=== PATIENT | male | born 1960 | race Two or more races ===

== ENCOUNTER 2018-07-02 13:09 | Inpatient (IN) | payer MEDICAID, OTHER ==
[~2018-07-02] VITALS: Ht 172.7 cm; Wt 81.3 kg
[2018-07-02] MEDS ORDERED: BENA5TAB6 PO (13:35)
[2018-07-02] MEDS ORDERED: POTA8TAB8 PO (13:35)
[2018-07-02] MEDS ORDERED: DOCU-138 PO (13:35)
[2018-07-02] MEDS ORDERED: ASPI-1159 PO (13:35)
[2018-07-02] MEDS ORDERED: FURO40TA5 PO (13:35)
[2018-07-02] MEDS ORDERED: ATOR40TA70 PO (13:35)
[2018-07-02] MEDS ORDERED: LEVOFLOXACIN 750MG PREMIX 150 ML IV ONE (14:30)
[2018-07-02] MEDS ORDERED: ACETAMINOPHEN 325MG TABLET PO ONE (14:30)
[2018-07-02] MEDS ORDERED: SODIUM CHLORIDE 0.9% 1000ML BAG (SEPSIS BOLUS) IV ONE (14:30)
[2018-07-02 14:35] LABS: BASOPHILS % 0.2 % (0.0-2.0); EOSINOPHILS % 0.2 % (0.0-5.0); HEMATOCRIT. 40.6 % (42.0-52.0); HEMOGLOBIN. 13.8 g/dL (14.0-18.0); LYMPHOCYTES % 7.5 % (20.0-50.0); MEAN CORPUSCULAR HEMOGLOBIN 31.1 pg (28.0-32.0); MEAN CORPUSCULAR VOLUME 91.7 fL (80.0-94.0); MEAN PLATELET VOLUME 10.2 fl (7.4-10.4); MONOCYTES % 6.1 % (2.0-8.0); PLATELET 110 x1000/uL (130-400); RED BLOOD CELL COUNT 4.43 mill/uL (4.7-6.1); RED CELL DISTRIBUTION WIDTH 15.3 % (11.6-14.6)
[2018-07-02 14:43] LABS: INR 1.3; PARTIAL THROMBOPLASTIN TIME 27.5 sec (23.4-31.0); PROTHROMBIN TIME 12.8 sec (9.1-11.1)
[2018-07-02 14:44] LABS: CHLORIDE 102 mEq/L (98-107)
[2018-07-02] MEDS ORDERED: KETOROLAC 15MG/ML VIAL IV ONE (15:45)
[2018-07-02 15:57] LABS: CLARITY URINE CLOUDY (CLEAR); COLOR URINE DARK YELLOW (YELLOW); KETONES URINE NEGATIVE (NEGATIVE); LEUKOCYTE ESTERASE URINE NEGATIVE (NEGATIVE); NITRITE URINE NEGATIVE (NEGATIVE); OCCULT BLOOD URINE NEGATIVE (NEGATIVE); PROTEIN URINE 2+ (NEGATIVE); SPECIFIC GRAVITY URINE 1.011 (1.005-1.030)
[2018-07-02 16:18] LABS: HEPATITIS B SURFACE ANTIGEN NEGATIVE
[2018-07-02] MEDS ORDERED: OSELTAMIVIR 75MG CAPSULE PO ONE (16:45)
[2018-07-02 16:47] LABS: HEPATITIS A AB IGM NEGATIVE (NEGATIVE)
[2018-07-02] MEDS ORDERED: SODIUM CHLORIDE 0.9% 1,000 ML IV ONE ×3 (17:07→22:34)
[2018-07-02] MEDS ORDERED: METRONIDAZOLE 500 MG PREMIX 100 ML IV ONE (17:15)
[2018-07-02] MEDS ORDERED: NOREPINEPHRINE 4 MG in DEXT 5% WATER 246 ML IV ONE (20:45)
[2018-07-02] MEDS ORDERED: NOREPINEPHRINE 4 MG in DEXT 5% WATER 246 ML IV PRN (21:00)
[2018-07-03] VITALS (66 sets, daily range): BP systolic 79–135; BP diastolic 34–89
[2018-07-03] MEDS ORDERED: NOREPINEPHRINE 4 MG in DEXT 5% WATER 246 ML IV PRN ×2
[2018-07-03] MEDS ORDERED: ACETAMINOPHEN 650MG/20.3ML UDC GT PRN
[2018-07-03] MEDS ORDERED: ONDANSETRON HCL 4MG/2ML INJ IV PRN
[2018-07-03] MEDS ORDERED: NA PHOS,M-B/NA PHOS,DI-BA ENEMA 118ML PR PRN
[2018-07-03] MEDS ORDERED: MAGNESIUM/ALUMINUM HYDROXIDE/SIMETHICONE 30ML UDC PO PRN
[2018-07-03] MEDS ORDERED: IPRATROPIUM/ALBUTEROL 0.5-3(2.5)MG/3ML NEB INH PRN
[2018-07-03] MEDS ORDERED: PIPERACILLIN/TAZ 3.375G PREMIX 50 ML IV SCH
[2018-07-03] MEDS ORDERED: ACETAMINOPHEN 325MG TABLET PO PRN
[2018-07-03] MEDS ORDERED: ACETAMINOPHEN 650MG SUPP PR PRN
[2018-07-03] MEDS ORDERED: DOCUSATE SODIUM 100MG CAPSULE PO PRN
[2018-07-03] MEDS ORDERED: CLONIDINE 0.1MG TABLET PO PRN
[2018-07-03] MEDS ORDERED: SODIUM CHLORIDE 0.9% 1,000 ML IV SCH (02:00)
[2018-07-03] MEDS: PIPERACILLIN/TAZ 3.375G PREMIX 50 ML IV SCH ×3 (03:03→18:49)
[2018-07-03] MEDS ORDERED: VANCOMYCIN 1250MG in DEXTROSE 5% WATER 250ML IV NR (04:00)
[2018-07-03] MEDS: IPRATROPIUM/ALBUTEROL 0.5-3(2.5)MG/3ML NEB INH SCH ×4 (04:44→20:23)
[2018-07-03] MEDS: SODIUM CHLORIDE 0.9% INJ 3ML FLUSH IVF SCH ×3 (05:42→23:34)
[2018-07-03 05:52] LABS: BASOPHILS % 0.1 % (0.0-2.0); EOSINOPHILS % 0.1 % (0.0-5.0); HEMATOCRIT. 49.2 % (42.0-52.0); HEMOGLOBIN. 16.2 g/dL (14.0-18.0); LYMPHOCYTES % 14.1 % (20.0-50.0); MEAN CORPUSCULAR HEMOGLOBIN 30.9 pg (28.0-32.0); MEAN CORPUSCULAR VOLUME 93.8 fL (80.0-94.0); MEAN PLATELET VOLUME 10.5 fl (7.4-10.4); MONOCYTES % 11.3 % (2.0-8.0); NEUTROPHILS % 74.4 % (40.0-76.0); PLATELET 130 x1000/uL (130-400); RED BLOOD CELL COUNT 5.24 mill/uL (4.7-6.1); RED CELL DISTRIBUTION WIDTH 16.1 % (11.6-14.6)
[2018-07-03 05:56] LABS: CHLORIDE 103 mEq/L (98-107)
[2018-07-03] MEDS ORDERED: METRONIDAZOLE 500 MG PREMIX 100 ML IV SCH ×2 (06:00)
[2018-07-03 06:03] LABS: LDL CHOLESTEROL 67 mg/dL (5-100)
[2018-07-03 06:04] LABS: HDL CHOLESTEROL 28 mg/dL (40-59)
[2018-07-03] MEDS ORDERED: HYDROCODONE/ACETAMINOPHEN 10/325MG TABLET PO PRN (08:45)
[2018-07-03] MEDS ORDERED: GUAIFENESIN 200MG/10ML SUGAR FREE UDC PO PRN ×2 (08:45)
[2018-07-03] MEDS ORDERED: MORPHINE SULFATE 4 MG/ML CPJ (NOT FOR IM USE) IV PRN (09:00)
[2018-07-03] MEDS: ENOXAPARIN 40MG/0.4ML SYR SUBCUT SCH (09:00)
[2018-07-03] MEDS: OSELTAMIVIR 75MG CAPSULE PO SCH ×2 (09:00→20:47)
[2018-07-03 10:26] LABS: *AMPHETAMINES SCREEN URINE NEGATIVE (NEGATIVE); *BARBITURATES SCREEN URINE NEGATIVE (NEGATIVE); *BENZODIAZEPINES SCREEN URINE NEGATIVE (NEGATIVE); *COCAINE SCREEN URINE NEGATIVE (NEGATIVE); METHADONE URINE SCREEN NEGATIVE (NEGATIVE); OPIATES URINE SCREEN NEGATIVE (NEGATIVE)
[2018-07-03 10:27] LABS: CANNABINOID URINE SCREEN NEGATIVE (NEGATIVE); PHENCYCLIDINE URINE SCREEN NEGATIVE (NEGATIVE)
[2018-07-03] MEDS ORDERED: LIDOCAINE HCL 1% 20ML VIAL (Pyxis) INJ ONE (14:12)
[2018-07-03] MEDS ORDERED: SODIUM BICARBONATE 4% (2.4MEQ) 5ML VIAL IV ONE (14:13)
[2018-07-03] MEDS: VANCOMYCIN 1500MG in DEXTROSE 5% WATER 250ML IV SCH (20:47)
[2018-07-04] MEDS: IPRATROPIUM/ALBUTEROL 0.5-3(2.5)MG/3ML NEB INH SCH ×4 (01:13→20:06)
[2018-07-04] MEDS: PIPERACILLIN/TAZ 3.375G PREMIX 50 ML IV SCH ×2 (02:01→13:23)
[2018-07-04 04:00] VITALS: BP 101/77
[2018-07-04] MEDS: SODIUM CHLORIDE 0.9% INJ 3ML FLUSH IVF SCH ×3 (06:25→21:14)
[2018-07-04 08:00] VITALS: BP 111/82
[2018-07-04] MEDS: ENOXAPARIN 40MG/0.4ML SYR SUBCUT SCH (08:43)
[2018-07-04] MEDS: OSELTAMIVIR 75MG CAPSULE PO SCH ×2 (08:43→20:23)
[2018-07-04 12:00] VITALS: BP 113/92
[2018-07-04] MEDS: GUAIFENESIN-DM 200MG-20MG/10ML UDC PO PRN ×2 (12:05→20:23)
[2018-07-04] MEDS: VANCOMYCIN 1500MG in DEXTROSE 5% WATER 250ML IV SCH (14:25)
[2018-07-04 16:00] VITALS: BP 116/80
[2018-07-04 16:45] LABS: BASOPHILS % 0.4 % (0.0-2.0); EOSINOPHILS % 0.3 % (0.0-5.0); HEMATOCRIT. 42.1 % (42.0-52.0); LYMPHOCYTES % 34.7 % (20.0-50.0); MEAN CORPUSCULAR VOLUME 93.2 fL (80.0-94.0); MEAN PLATELET VOLUME 10.1 fl (7.4-10.4); MONOCYTES % 10.2 % (2.0-8.0); NEUTROPHILS % 54.4 % (40.0-76.0); PLATELET 108 x1000/uL (130-400); RED BLOOD CELL COUNT 4.52 mill/uL (4.7-6.1); RED CELL DISTRIBUTION WIDTH 16.5 % (11.6-14.6)
[2018-07-04 16:49] LABS: CHLORIDE 107 mEq/L (98-107)
[2018-07-04 20:11] VITALS: BP 113/83
[2018-07-04] MEDS: DIPHENHYDRAMINE 50MG/ML VIAL IV PRN (23:55)
[2018-07-05] VITALS: BP 133/93
[2018-07-05] MEDS: IPRATROPIUM/ALBUTEROL 0.5-3(2.5)MG/3ML NEB INH SCH ×4 (02:06→20:48)
[2018-07-05] MEDS: GUAIFENESIN-DM 200MG-20MG/10ML UDC PO PRN ×2 (02:54→08:40)
[2018-07-05 04:00] VITALS: BP 102/77
[2018-07-05] MEDS: SODIUM CHLORIDE 0.9% INJ 3ML FLUSH IVF SCH ×3 (06:49→21:12)
[2018-07-05 08:00] VITALS: BP 137/95
[2018-07-05] MEDS: OSELTAMIVIR 75MG CAPSULE PO SCH ×2 (08:40→20:45)
[2018-07-05] MEDS: ENOXAPARIN 40MG/0.4ML SYR SUBCUT SCH (08:40)
[2018-07-05 12:00] VITALS: BP 108/76
[2018-07-05 15:22] LABS: BASOPHILS % 0.2 % (0.0-2.0); EOSINOPHILS % 0.7 % (0.0-5.0); HEMATOCRIT. 46.5 % (42.0-52.0); HEMOGLOBIN. 15.4 g/dL (14.0-18.0); LYMPHOCYTES % 37.4 % (20.0-50.0); MEAN CORPUSCULAR HEMOGLOBIN 31.5 pg (28.0-32.0); MEAN CORPUSCULAR VOLUME 94.8 fL (80.0-94.0); MEAN PLATELET VOLUME 9.8 fl (7.4-10.4); MONOCYTES % 8.7 % (2.0-8.0); PLATELET 111 x1000/uL (130-400); RED BLOOD CELL COUNT 4.91 mill/uL (4.7-6.1); RED CELL DISTRIBUTION WIDTH 16.4 % (11.6-14.6)
[2018-07-05 15:25] LABS: CHLORIDE 108 mEq/L (98-107)
[2018-07-05 16:00] VITALS: BP 126/84
[2018-07-05 19:42] LABS: INR 1.3; PARTIAL THROMBOPLASTIN TIME 30.8 sec (23.4-31.0); PROTHROMBIN TIME 13.1 sec (9.1-11.1)
[2018-07-05 20:28] VITALS: BP 121/79
[2018-07-05] MEDS: FUROSEMIDE 40MG/4ML VIAL IVP SCH (21:30)
[2018-07-06 00:28] VITALS: BP 119/97
[2018-07-06] MEDS: IPRATROPIUM/ALBUTEROL 0.5-3(2.5)MG/3ML NEB INH SCH ×4 (02:21→21:04)
[2018-07-06 04:00] VITALS: BP 101/74
[2018-07-06] MEDS: SODIUM CHLORIDE 0.9% INJ 3ML FLUSH IVF SCH ×3 (06:03→21:26)
[2018-07-06 08:00] VITALS: BP 119/80
[2018-07-06] MEDS: ENOXAPARIN 40MG/0.4ML SYR SUBCUT SCH (08:36)
[2018-07-06] MEDS: FUROSEMIDE 40MG/4ML VIAL IVP SCH (08:37)
[2018-07-06] MEDS: OSELTAMIVIR 75MG CAPSULE PO SCH ×2 (09:08→21:25)
[2018-07-06 09:24] LABS: CHLORIDE 107 mEq/L (98-107)
[2018-07-06 12:00] VITALS: BP 127/77
[2018-07-06] MEDS: GUAIFENESIN-DM 200MG-20MG/10ML UDC PO PRN (14:23)
[2018-07-06 16:00] VITALS: BP 120/70
[2018-07-06 20:00] VITALS: BP 109/71
[2018-07-06] MEDS: DIPHENHYDRAMINE 50MG/ML VIAL IV PRN (21:29)
[2018-07-07] VITALS: BP 112/87
[2018-07-07] MEDS: IPRATROPIUM/ALBUTEROL 0.5-3(2.5)MG/3ML NEB INH SCH ×3 (02:36→14:13)
[2018-07-07] MEDS: SODIUM CHLORIDE 0.9% INJ 3ML FLUSH IVF SCH ×2 (06:00→14:00)
[2018-07-07 06:45] LABS: BASOPHILS % 0.4 % (0.0-2.0); EOSINOPHILS % 0.7 % (0.0-5.0); HEMATOCRIT. 44.2 % (42.0-52.0); HEMOGLOBIN. 14.9 g/dL (14.0-18.0); MEAN CORPUSCULAR HEMOGLOBIN 31.1 pg (28.0-32.0); MEAN PLATELET VOLUME 10.3 fl (7.4-10.4); MONOCYTES % 9.6 % (2.0-8.0); NEUTROPHILS % 56.3 % (40.0-76.0); PLATELET 125 x1000/uL (130-400)
[2018-07-07 07:03] LABS: CHLORIDE 107 mEq/L (98-107)
[2018-07-07 08:00] VITALS: BP 122/87
[2018-07-07] MEDS: FUROSEMIDE 40MG/4ML VIAL IVP SCH (10:40)
[2018-07-07] MEDS: OSELTAMIVIR 75MG CAPSULE PO SCH (10:40)
[2018-07-07] MEDS: ENOXAPARIN 40MG/0.4ML SYR SUBCUT SCH (10:40)
[2018-07-07 12:00] VITALS: BP 118/78
[2018-07-07 16:00] VITALS: BP 110/72
[2018-07-07 18:57] VITALS: BP 110/72
== END 2018-07-07 19:35 | disposition home or self-care (01) | DRG 720 ==
LOC: ER 13:09 → MICUSO 17:09 → EDBEDREQ 17:18 → EDBEDREQTM 21:25 → EDBEDREQ 21:25 → EDBEDREQSVC 21:25 → ENRESERV 23:04 → 6WST 07-03 22:05
PROVIDERS: ADMIT Family Medicine; ATTEND Family Medicine
PROC: 0W9G3ZZ Drainage of Peritoneal Cavity, Percutaneous Approach (ICD-10-PCS; principal; 2018-07-03)
DX: A41.89 Other specified sepsis (principal); J96.00 Acute respiratory failure, unspecified whether with hypoxia or hypercapnia; R65.21 Severe sepsis with septic shock; J11.00 Influenza due to unidentified influenza virus with unspecified type of pneumonia; I11.0 Hypertensive heart disease with heart failure; K81.0 Acute cholecystitis; I50.9 Heart failure, unspecified; E44.1 Mild protein-calorie malnutrition; K57.32 Diverticulitis of large intestine without perforation or abscess without bleeding; K70.31 Alcoholic cirrhosis of liver with ascites; K81.9 Cholecystitis, unspecified; E78.5 Hyperlipidemia, unspecified; K40.90 Unilateral inguinal hernia, without obstruction or gangrene, not specified as recurrent; B97.89 Other viral agents as the cause of diseases classified elsewhere; K76.0 Fatty (change of) liver, not elsewhere classified; E78.00 Pure hypercholesterolemia, unspecified; E86.0 Dehydration; K29.70 Gastritis, unspecified, without bleeding; Z68.27 Body mass index [BMI] 27.0-27.9, adult; Z72.89 Other problems related to lifestyle
CPT/HCPCS: 36415; 49083; 71045; 74176; 74181; 76700; 80048; 80061; 80076; 80202; 80305; 82040; 82140; 82150; 83605; 83735; 84145; 84315; 84484; 86705; 86709; 86803; 87340; 87804; 88108; 88312; 93005; 94640; 96374; 99285; C1893; J1200; J1650; J1885; J1940; J1956; J2270; J2543; J3370; J3490; J7030; J7040; J7060; J7620

== ENCOUNTER 2019-03-10 08:34 | Emergency (ER) | payer OTHER ==
[~2019-03-10] VITALS: Ht 154.9 cm; Wt 79.0 kg
[~2019-03-10 08:34] MED LIST: ASPI-1393 PO; BENA5TAB6 PO; DOCU-138 PO; FOLI-43 PO; FURO40TA5 PO; LACT10SO7 PO; POTA8TAB8 PO; THIA100T72 PO
[2019-03-10] MEDS ORDERED: ONDANSETRON HCL 4MG/2ML INJ IV STA (10:01)
[2019-03-10] MEDS ORDERED: FAMOTIDINE 20MG/2ML VIAL IV STA (10:01)
[2019-03-10] MEDS ORDERED: MORPHINE SULFATE 4 MG/ML CPJ (NOT FOR IM USE) IV STA (10:01)
[2019-03-10] MEDS ORDERED: DIATR MEGLU/DIATRIZOATE SOLN 120ML ONE (10:51)
[2019-03-10 11:36] LABS: BASOPHILS % 0.3 % (0.0-2.0); EOSINOPHILS % 1.1 % (0.0-5.0); HEMATOCRIT. 42.8 % (42.0-52.0); HEMOGLOBIN. 14.6 g/dL (14.0-18.0); LYMPHOCYTES % 31.2 % (20.0-50.0); MEAN CORPUSCULAR HEMOGLOBIN 32.1 pg (28.0-32.0); MEAN PLATELET VOLUME 10.2 fl (7.4-10.4); MONOCYTES % 5.7 % (2.0-8.0); NEUTROPHILS % 61.7 % (40.0-76.0); PLATELET 135 x1000/uL (130-400); RED BLOOD CELL COUNT 4.55 mill/uL (4.7-6.1); RED CELL DISTRIBUTION WIDTH 13.1 % (11.6-14.6)
[2019-03-10 11:43] LABS: CHLORIDE 105 mEq/L (98-107)
[2019-03-10 11:48] LABS: ETHANOL BLOOD < 10 mg/dL
[2019-03-10 12:03] LABS: PROTHROMBIN TIME 10.5 sec (9.6-11.0)
[2019-03-10 13:13] LABS: CLARITY URINE CLEAR (CLEAR); COLOR URINE YELLOW (YELLOW); KETONES URINE NEGATIVE (NEGATIVE); LEUKOCYTE ESTERASE URINE NEGATIVE (NEGATIVE); NITRITE URINE NEGATIVE (NEGATIVE); OCCULT BLOOD URINE NEGATIVE (NEGATIVE); PROTEIN URINE NEGATIVE (NEGATIVE); SPECIFIC GRAVITY URINE 1.011 (1.005-1.030)
[2019-03-10 13:44] LABS: *BARBITURATES SCREEN URINE NEGATIVE (NEGATIVE); OPIATES URINE SCREEN PRESUMTIVE POSITIVE (NEGATIVE); PHENCYCLIDINE URINE SCREEN NEGATIVE (NEGATIVE)
[2019-03-10 13:45] LABS: *AMPHETAMINES SCREEN URINE NEGATIVE (NEGATIVE); *BENZODIAZEPINES SCREEN URINE NEGATIVE (NEGATIVE); *COCAINE SCREEN URINE NEGATIVE (NEGATIVE); CANNABINOID URINE SCREEN NEGATIVE (NEGATIVE)
[2019-03-10 13:47] LABS: METHADONE URINE SCREEN NEGATIVE (NEGATIVE)
[2019-03-10 15:00] VITALS: BP 119/91
== END 2019-03-10 15:15 | disposition home or self-care (01) ==
LOC: ER 08:34
DX: R10.9 Unspecified abdominal pain (principal); I11.0 Hypertensive heart disease with heart failure; I50.9 Heart failure, unspecified; I31.3 Pericardial effusion (noninflammatory); Z79.82 Long term (current) use of aspirin; Z79.899 Other long term (current) drug therapy
CPT/HCPCS: 36415; 74176; 80053; 80305; 80320; 81003; 83690; 85025; 85610; 96374; 96375; 99284; J2270; J2405; J3490; Q9963; Z7610; G0480

== ENCOUNTER 2019-06-17 01:52 | Emergency (ER) | payer MEDICAID, OTHER ==
[~2019-06-17] VITALS: Ht 165.1 cm; Wt 78.0 kg
[~2019-06-17 01:52] MED LIST changes: -ASPI-1393 PO; +ASPI-1497 PO; -BENA5TAB6 PO; +COR6 PO; +FURO-151 MT; +LOSA25TA3 PO; +POTA20TA82 MT; -POTA8TAB8 PO
[2019-06-17] MEDS ORDERED: IBUPROFEN 600MG TABLET PO STA (03:20)
[2019-06-17 06:23] VITALS: BP 111/72
== END 2019-06-17 06:24 | disposition home or self-care (01) ==
LOC: ER 01:52
DX: J06.9 Acute upper respiratory infection, unspecified (principal); M25.551 Pain in right hip; E78.00 Pure hypercholesterolemia, unspecified; Z98.890 Other specified postprocedural states; Z79.82 Long term (current) use of aspirin; W18.39XA Other fall on same level, initial encounter; Y93.89 Activity, other specified; Y92.89 Other specified places as the place of occurrence of the external cause; Y99.8 Other external cause status
CPT/HCPCS: 71045; 73521; 99284

== ENCOUNTER 2019-06-26 10:43 | Emergency (ER) | payer MEDICAID ==
[~2019-06-26] VITALS: Ht 167.6 cm; Wt 80.7 kg
[2019-06-26 10:53] VITALS: BP 101/68
== END 2019-06-26 13:09 | disposition home or self-care (01) ==
LOC: ER 10:43
DX: R05 Cough (principal); I10 Essential (primary) hypertension; E11.9 Type 2 diabetes mellitus without complications
CPT/HCPCS: 71045; 99283

== ENCOUNTER 2019-09-23 15:56 | Emergency (ER) | payer MEDICAID ==
[~2019-09-23] VITALS: Ht 165.1 cm; Wt 70.0 kg
[2019-09-23] MEDS ORDERED: IBUPROFEN 600MG TABLET PO ONE (16:30)
[2019-09-23 17:26] VITALS: BP 120/78
== END 2019-09-23 17:28 | disposition home or self-care (01) ==
LOC: ER 15:56
DX: M25.532 Pain in left wrist (principal); I10 Essential (primary) hypertension; E78.00 Pure hypercholesterolemia, unspecified
CPT/HCPCS: 73110; 99283

== ENCOUNTER 2019-12-03 10:49 | Emergency (ER) | payer MEDICAID ==
[~2019-12-03] VITALS: Ht 165.1 cm; Wt 61.0 kg
[2019-12-03] MEDS ORDERED: TRAMADOL 50MG TABLET PO ONE (11:30)
[2019-12-03] MEDS ORDERED: IBUPROFEN 800MG TABLET PO ONE (11:30)
[2019-12-03 12:53] VITALS: BP 110/71
== END 2019-12-03 12:56 | disposition home or self-care (01) ==
LOC: ER 10:49
DX: S20.212A Contusion of left front wall of thorax, initial encounter (principal); W18.39XA Other fall on same level, initial encounter; Y93.89 Activity, other specified; Y92.89 Other specified places as the place of occurrence of the external cause; Y99.8 Other external cause status; E78.00 Pure hypercholesterolemia, unspecified; I10 Essential (primary) hypertension; Z79.899 Other long term (current) drug therapy
CPT/HCPCS: 72100; 99283

== ENCOUNTER 2020-02-17 18:36 | Inpatient (IN) | payer MEDICAID ==
[~2020-02-17] VITALS: Ht 165.1 cm; Wt 77.6 kg
[2020-02-17] MEDS ORDERED: FAMOTIDINE 20MG/2ML VIAL IV STA (19:09)
[2020-02-17] MEDS ORDERED: ONDANSETRON HCL 4MG/2ML INJ IV STA (19:09)
[2020-02-17] MEDS ORDERED: SODIUM CHLORIDE 0.9% 1,000 ML IV ONE (19:15)
[2020-02-17 20:45] LABS: CLARITY URINE CLEAR (CLEAR); COLOR URINE DARK YELLOW (YELLOW); KETONES URINE TRACE (NEGATIVE); LEUKOCYTE ESTERASE URINE TRACE (NEGATIVE); NITRITE URINE NEGATIVE (NEGATIVE); OCCULT BLOOD URINE NEGATIVE (NEGATIVE); PROTEIN URINE 1+ (NEGATIVE); SPECIFIC GRAVITY URINE 1.021 (1.005-1.030)
[2020-02-17 20:49] LABS: BASOPHILS % 0.7 % (0.0-2.0); EOSINOPHILS % 0.2 % (0.0-5.0); HEMATOCRIT. 48.7 % (42.0-52.0); HEMOGLOBIN. 16.3 g/dL (14.0-18.0); MEAN CORPUSCULAR HEMOGLOBIN 30.6 pg (28.0-32.0); MEAN CORPUSCULAR VOLUME 91.1 fL (80.0-94.0); MEAN PLATELET VOLUME 10.7 fl (7.4-10.4); MONOCYTES % 6.1 % (2.0-8.0); PLATELET 164 x1000/uL (130-400); RED BLOOD CELL COUNT 5.34 mill/uL (4.7-6.1); RED CELL DISTRIBUTION WIDTH 14.9 % (11.6-14.6)
[2020-02-17 20:52] LABS: CHLORIDE 104 mEq/L (98-107)
[2020-02-17 20:56] LABS: INR 1.2
[2020-02-17 20:59] LABS: *COCAINE SCREEN URINE NEGATIVE (NEGATIVE); CANNABINOID URINE SCREEN NEGATIVE (NEGATIVE); ETHANOL BLOOD < 10 mg/dL; METHADONE URINE SCREEN NEGATIVE (NEGATIVE); OPIATES URINE SCREEN NEGATIVE (NEGATIVE); PHENCYCLIDINE URINE SCREEN NEGATIVE (NEGATIVE)
[2020-02-17 21:00] LABS: *AMPHETAMINES SCREEN URINE NEGATIVE (NEGATIVE); *BARBITURATES SCREEN URINE NEGATIVE (NEGATIVE); *BENZODIAZEPINES SCREEN URINE NEGATIVE (NEGATIVE)
[2020-02-17] MEDS ORDERED: CEFTRIAXONE 1 G PREMIX 50 ML IV SCH (23:15)
[2020-02-17] MEDS ORDERED: ASPIRIN 325MG EC TABLET PO SCH (23:15)
[2020-02-17] MEDS ORDERED: FUROSEMIDE 40MG/4ML VIAL IVP SCH (23:15)
[2020-02-18 04:00] VITALS: BP_SYST 106; BP_SYST 130; BP_DIAS 78; BP_DIAS 96
[2020-02-18 07:57] LABS: BASOPHILS % 0.8 % (0.0-2.0); EOSINOPHILS % 1.4 % (0.0-5.0); HEMATOCRIT. 44.9 % (42.0-52.0); HEMOGLOBIN. 15.2 g/dL (14.0-18.0); LYMPHOCYTES % 40.3 % (20.0-50.0); MEAN CORPUSCULAR HEMOGLOBIN 30.8 pg (28.0-32.0); MEAN CORPUSCULAR VOLUME 91.2 fL (80.0-94.0); MEAN PLATELET VOLUME 9.9 fl (7.4-10.4); MONOCYTES % 8.1 % (2.0-8.0); NEUTROPHILS % 49.4 % (40.0-76.0); PLATELET 153 x1000/uL (130-400); RED BLOOD CELL COUNT 4.92 mill/uL (4.7-6.1); RED CELL DISTRIBUTION WIDTH 14.7 % (11.6-14.6)
[2020-02-18 08:00] VITALS: BP 126/72
[2020-02-18 08:22] LABS: CHLORIDE 105 mEq/L (98-107)
[2020-02-18] MEDS ORDERED: HYDROCODONE/ACETAMINOPHEN 5/325MG TABLET PO PRN (09:45)
[2020-02-18] MEDS ORDERED: ONDANSETRON HCL 4MG/2ML INJ IV PRN (09:45)
[2020-02-18] MEDS ORDERED: CLONIDINE 0.1MG TABLET PO PRN (09:45)
[2020-02-18] MEDS ORDERED: ACETAMINOPHEN 325MG TABLET PO PRN (09:45)
[2020-02-18] MEDS ORDERED: MAGNESIUM/ALUMINUM HYDROXIDE/SIMETHICONE 30ML UDC PO PRN (09:45)
[2020-02-18] MEDS: FOLIC ACID 1MG TABLET PO SCH (09:59)
[2020-02-18] MEDS: FUROSEMIDE 40MG TABLET PO SCH ×2 (09:59→21:13)
[2020-02-18] MEDS: DOCUSATE SODIUM 100MG CAPSULE PO SCH (09:59)
[2020-02-18] MEDS: CARVEDILOL 6.25 MG TABLET PO SCH ×2 (09:59→21:00)
[2020-02-18] MEDS: THIAMINE HCL 100MG TABLET PO SCH (09:59)
[2020-02-18] MEDS: LOSARTAN POTASSIUM 25 MG TABLET PO SCH (09:59)
[2020-02-18] MEDS ORDERED: INFLUENZA VACCINE 05/PF 0.5 ML VIAL IM ONE (10:00)
[2020-02-18] MEDS: ASPIRIN 81MG TABLET PO SCH (10:00)
[2020-02-18 12:00] VITALS: BP 124/73
[2020-02-18] MEDS: ENOXAPARIN 40MG/0.4ML SYR SUBCUT SCH (14:57)
[2020-02-18 16:00] VITALS: BP 120/74
[2020-02-18 20:00] VITALS: BP 104/75
[2020-02-19 00:49] VITALS: BP 107/68
[2020-02-19 04:00] VITALS: BP 104/77
[2020-02-19 06:47] LABS: BASOPHILS % 0.7 % (0.0-2.0); EOSINOPHILS % 1.9 % (0.0-5.0); HEMOGLOBIN. 15.2 g/dL (14.0-18.0); MEAN CORPUSCULAR HEMOGLOBIN 30.8 pg (28.0-32.0); MEAN PLATELET VOLUME 9.6 fl (7.4-10.4); MONOCYTES % 6.6 % (2.0-8.0); NEUTROPHILS % 56.8 % (40.0-76.0); PLATELET 125 x1000/uL (130-400); RED BLOOD CELL COUNT 4.94 mill/uL (4.7-6.1); RED CELL DISTRIBUTION WIDTH 14.8 % (11.6-14.6)
[2020-02-19 06:55] LABS: CHLORIDE 102 mEq/L (98-107)
[2020-02-19 07:02] LABS: PHOSPHORUS 3.5 mg/dL (2.5-4.9)
[2020-02-19 07:03] LABS: HDL CHOLESTEROL 25 mg/dL (40-59); LDL CHOLESTEROL 100 mg/dL (5-100)
[2020-02-19 08:00] VITALS: BP 114/75
[2020-02-19] MEDS: ENOXAPARIN 40MG/0.4ML SYR SUBCUT SCH (09:45)
[2020-02-19] MEDS: PANTOPRAZOLE SODIUM 40 MG/VIAL IV SCH (09:56)
[2020-02-19] MEDS: DOCUSATE SODIUM 100MG CAPSULE PO SCH (09:56)
[2020-02-19] MEDS: FUROSEMIDE 40MG TABLET PO SCH ×2 (09:57→21:22)
[2020-02-19] MEDS: CARVEDILOL 6.25 MG TABLET PO SCH (09:57)
[2020-02-19] MEDS: THIAMINE HCL 100MG TABLET PO SCH (09:57)
[2020-02-19] MEDS: FOLIC ACID 1MG TABLET PO SCH (09:57)
[2020-02-19] MEDS: ASPIRIN 81MG TABLET PO SCH (09:57)
[2020-02-19] MEDS: LOSARTAN POTASSIUM 25 MG TABLET PO SCH (10:15)
[2020-02-19 12:00] VITALS: BP 118/71
[2020-02-19 16:00] VITALS: BP 120/73
[2020-02-19 20:00] VITALS: BP 100/74
[2020-02-19] MEDS: CARVEDILOL 12.5MG TABLET PO SCH (21:00)
[2020-02-20] VITALS: BP 112/79
[2020-02-20 04:00] VITALS: BP 113/76
[2020-02-20 06:17] LABS: BASOPHILS % 0.6 % (0.0-2.0); HEMATOCRIT. 45.1 % (42.0-52.0); HEMOGLOBIN. 15.2 g/dL (14.0-18.0); MEAN CORPUSCULAR HEMOGLOBIN 30.8 pg (28.0-32.0); MEAN CORPUSCULAR VOLUME 91.3 fL (80.0-94.0); MEAN PLATELET VOLUME 10.1 fl (7.4-10.4); MONOCYTES % 7.1 % (2.0-8.0); NEUTROPHILS % 57.3 % (40.0-76.0); PLATELET 142 x1000/uL (130-400); RED BLOOD CELL COUNT 4.94 mill/uL (4.7-6.1); RED CELL DISTRIBUTION WIDTH 14.6 % (11.6-14.6)
[2020-02-20 06:27] LABS: CHLORIDE 101 mEq/L (98-107)
[2020-02-20 08:00] VITALS: BP 117/86
[2020-02-20] MEDS: DOCUSATE SODIUM 100MG CAPSULE PO SCH (09:31)
[2020-02-20] MEDS: PANTOPRAZOLE SODIUM 40 MG/VIAL IV SCH (09:31)
[2020-02-20] MEDS: ASPIRIN 81MG TABLET PO SCH (09:31)
[2020-02-20] MEDS: LOSARTAN POTASSIUM 25 MG TABLET PO SCH (09:31)
[2020-02-20] MEDS: FOLIC ACID 1MG TABLET PO SCH (09:32)
[2020-02-20] MEDS: CARVEDILOL 12.5MG TABLET PO SCH (09:32)
[2020-02-20] MEDS: FUROSEMIDE 40MG TABLET PO SCH (09:32)
[2020-02-20] MEDS: THIAMINE HCL 100MG TABLET PO SCH (09:32)
[2020-02-20] MEDS: ENOXAPARIN 40MG/0.4ML SYR SUBCUT SCH (09:33)
[2020-02-20 12:00] VITALS: BP 91/58
[2020-02-20] MEDS ORDERED: OMEP20TA2 MT (13:06)
[2020-02-20] MEDS ORDERED: LOSA25TA3 PO (13:06)
[2020-02-20] MEDS ORDERED: FURO40TA5 PO (13:06)
[2020-02-20] MEDS ORDERED: COR12 PO (13:06)
[2020-02-20 16:00] VITALS: BP 93/64
[2020-02-20 16:41] VITALS: BP 105/61
== END 2020-02-20 18:05 | disposition home or self-care (01) | DRG 243 ==
LOC: ER 18:36 → 6WST 23:54 → ENRESERV 02-18 01:18
PROVIDERS: ADMIT Internal Medicine; ATTEND Internal Medicine
DX: K21.9 Gastro-esophageal reflux disease without esophagitis (principal); I24.9 Acute ischemic heart disease, unspecified; I50.23 Acute on chronic systolic (congestive) heart failure; I11.0 Hypertensive heart disease with heart failure; R18.8 Other ascites; E78.5 Hyperlipidemia, unspecified; R16.0 Hepatomegaly, not elsewhere classified; K76.0 Fatty (change of) liver, not elsewhere classified; E11.9 Type 2 diabetes mellitus without complications; K74.60 Unspecified cirrhosis of liver; I42.8 Other cardiomyopathies; K57.90 Diverticulosis of intestine, part unspecified, without perforation or abscess without bleeding; I50.82 Biventricular heart failure; D64.9 Anemia, unspecified; E78.00 Pure hypercholesterolemia, unspecified; Z82.49 Family history of ischemic heart disease and other diseases of the circulatory system; Z87.442 Personal history of urinary calculi; Z87.891 Personal history of nicotine dependence; Z79.82 Long term (current) use of aspirin; Z79.899 Other long term (current) drug therapy
CPT/HCPCS: 36415; 71045; 74177; 76705; 78227; 80048; 80053; 80061; 80076; 80305; 80320; 81003; 83735; 83880; 84100; 84443; 84450; 84460; 84484; 85025; 90686; 93005; 93306; 93970; 97161; 97166; 99285; A9537; C9113; J0696; J1650; J1940; J2405; J3490; J7030; G0480

== ENCOUNTER 2020-03-10 17:49 | Emergency (ER) | payer MEDICAID ==
[~2020-03-10] VITALS: Ht 165.1 cm; Wt 79.0 kg
[~2020-03-10 17:49] MED LIST changes: +COR12 PO; -COR6 PO; -LACT10SO7 PO; +OMEP20TA2 MT
[2020-03-10] MEDS ORDERED: IBUPROFEN 600MG TABLET PO STA (18:00)
[2020-03-10] MEDS ORDERED: HYDROCODONE/ACETAMINOPHEN 5/325MG TABLET PO STA (18:00)
[2020-03-10 18:44] LABS: BASOPHILS % 0.6 % (0.0-2.0); EOSINOPHILS % 1.3 % (0.0-5.0); HEMATOCRIT. 45.4 % (42.0-52.0); LYMPHOCYTES % 34.1 % (20.0-50.0); MEAN CORPUSCULAR HEMOGLOBIN 29.8 pg (28.0-32.0); MEAN CORPUSCULAR VOLUME 90.1 fL (80.0-94.0); MEAN PLATELET VOLUME 10.1 fl (7.4-10.4); MONOCYTES % 7.6 % (2.0-8.0); NEUTROPHILS % 56.4 % (40.0-76.0); PLATELET 145 x1000/uL (130-400); RED BLOOD CELL COUNT 5.03 mill/uL (4.7-6.1)
[2020-03-10 18:52] LABS: CHLORIDE 105 mEq/L (98-107); INR 1.2
[2020-03-10 20:36] LABS: CLARITY URINE CLEAR (CLEAR); COLOR URINE DARK YELLOW (YELLOW); KETONES URINE NEGATIVE (NEGATIVE); LEUKOCYTE ESTERASE URINE TRACE (NEGATIVE); NITRITE URINE NEGATIVE (NEGATIVE); OCCULT BLOOD URINE NEGATIVE (NEGATIVE); PROTEIN URINE 2+ (NEGATIVE); SPECIFIC GRAVITY URINE 1.013 (1.005-1.030)
[2020-03-10 21:30] VITALS: BP 134/83
== END 2020-03-10 21:40 | disposition home or self-care (01) ==
LOC: ER 17:49
DX: R10.9 Unspecified abdominal pain (principal); R05 Cough; Z79.899 Other long term (current) drug therapy
CPT/HCPCS: 36415; 71045; 76705; 80053; 81003; 83880; 85025; 99285

== ENCOUNTER 2021-05-31 13:01 | Inpatient (IN) | payer MEDICAID ==
[~2021-05-31] VITALS: Ht 170.2 cm; Wt 78.0 kg
[2021-05-31] MEDS ORDERED: ASPIRIN 81MG TABLET PO ONE (13:30)
[2021-05-31] MEDS ORDERED: ACETAMINOPHEN 325MG TABLET PO PRN ×2 (13:30→20:15)
[2021-05-31] MEDS ORDERED: NITROGLYCERIN 0.4MG TABLET SL SL PRN (13:30)
[2021-05-31 14:11] LABS: BASOPHILS % 0.4 % (0.0-2.0); EOSINOPHILS % 0.9 % (0.0-5.0); HEMATOCRIT. 42.9 % (42.0-52.0); HEMOGLOBIN. 14.5 g/dL (14.0-18.0); LYMPHOCYTES % 30.2 % (20.0-50.0); MEAN CORPUSCULAR HEMOGLOBIN 32.1 pg (28.0-32.0); MONOCYTES % 6.1 % (2.0-8.0); NEUTROPHILS % 62.4 % (40.0-76.0); PLATELET 151 x1000/uL (130-400); RED BLOOD CELL COUNT 4.51 mill/uL (4.7-6.1); RED CELL DISTRIBUTION WIDTH 14.5 % (11.6-14.6)
[2021-05-31 14:17] LABS: CHLORIDE 106 mEq/L (98-107)
[2021-05-31] MEDS ORDERED: ONDANSETRON HCL 4MG/2ML INJ IV PRN (20:15)
[2021-05-31] MEDS: CARVEDILOL 6.25 MG TABLET PO SCH (21:00)
[2021-05-31 23:38] VITALS: BP 132/93
[2021-06-01 04:00] VITALS: BP 125/82
[2021-06-01 08:00] VITALS: BP 125/86
[2021-06-01] MEDS: ASPIRIN 81MG TABLET PO SCH (08:23)
[2021-06-01] MEDS: LOSARTAN POTASSIUM 25 MG TABLET PO SCH (08:23)
[2021-06-01] MEDS: CARVEDILOL 6.25 MG TABLET PO SCH ×2 (08:24→21:33)
[2021-06-01 12:00] VITALS: BP 116/83
[2021-06-01 16:00] VITALS: BP 112/65
[2021-06-01 20:00] VITALS: BP 126/87
[2021-06-01] MEDS ORDERED: ZOLPIDEM TARTRATE 5MG TABLET PO PRN (22:30)
[2021-06-02] VITALS (7 sets, daily range): BP systolic 121–135; BP diastolic 66–98
[2021-06-02] MEDS ORDERED: FUROSEMIDE 40MG/4ML VIAL IVP SCH (09:00)
[2021-06-02] MEDS: CARVEDILOL 6.25 MG TABLET PO SCH (09:00)
[2021-06-02] MEDS: LOSARTAN POTASSIUM 25 MG TABLET PO SCH (09:40)
[2021-06-02] MEDS: ASPIRIN 81MG TABLET PO SCH (09:40)
[2021-06-02] MEDS ORDERED: FUROSEMIDE 20MG TABLET PO SCH (14:30)
[2021-06-02] MEDS ORDERED: FURO-151 MT (17:41)
[2021-06-02] MEDS ORDERED: LOSA50TA3 PO (17:41)
[2021-06-02] MEDS ORDERED: COR6 PO (17:41)
[2021-06-03] MEDS ORDERED: LOSARTAN POTASSIUM 50 MG TABLET PO SCH (09:00)
== END 2021-06-02 19:45 | disposition home or self-care (01) | DRG 203 ==
LOC: ER 13:28 → 8WST 16:35 → ENRESERV 22:39 → 8WST 06-02 12:26
PROVIDERS: ADMIT Internal Medicine; ATTEND Internal Medicine
DX: M94.0 Chondrocostal junction syndrome [Tietze] (principal); I50.23 Acute on chronic systolic (congestive) heart failure; I27.20 Pulmonary hypertension, unspecified; I42.9 Cardiomyopathy, unspecified; I11.0 Hypertensive heart disease with heart failure; K76.0 Fatty (change of) liver, not elsewhere classified; E78.5 Hyperlipidemia, unspecified; Z20.822 Contact with and (suspected) exposure to COVID-19; M25.512 Pain in left shoulder; Z95.0 Presence of cardiac pacemaker; Z79.84 Long term (current) use of oral hypoglycemic drugs; Z79.899 Other long term (current) drug therapy; Z79.82 Long term (current) use of aspirin
CPT/HCPCS: 36415; 71045; 80053; 83880; 84484; 85025; 85379; 87426; 93005; 93306; 99285; J1940

== ENCOUNTER 2022-10-28 11:38 | Inpatient (IN) | payer OTHER, MEDICAID ==
[~2022-10-28] VITALS: Ht 167.6 cm; Wt 90.0 kg
[~2022-10-28 11:38] MED LIST changes: +COR6 PO; +LOSA-413 PO; -OMEP20TA2 MT; +OMEP20TA23 MT; +POTA-205 MT; -POTA20TA82 MT
[2022-10-28 12:17] LABS: BASOPHILS % 0.7 % (0.0-2.0); EOSINOPHILS % 0.9 % (0.0-5.0); LYMPHOCYTES % 22.2 % (20.0-50.0); MEAN CORPUSCULAR HEMOGLOBIN 32.6 pg (28.0-32.0); MEAN CORPUSCULAR VOLUME 95.4 fL (80.0-94.0); MEAN PLATELET VOLUME 9.8 fl (7.4-10.4); MONOCYTES % 7.8 % (2.0-8.0); NEUTROPHILS % 68.4 % (40.0-76.0); PLATELET 158 x1000/uL (130-400); RED BLOOD CELL COUNT 4.61 mill/uL (4.7-6.1); RED CELL DISTRIBUTION WIDTH 14.9 % (11.6-14.6)
[2022-10-28 12:29] LABS: CHLORIDE 101 mEq/L (98-107)
[2022-10-28 13:02] LABS: INR 1.5
[2022-10-28] MEDS ORDERED: LACTULOSE 20G/30ML UDC PO ONE (13:15)
[2022-10-28 13:22] LABS: CLARITY URINE CLEAR (CLEAR); COLOR URINE YELLOW (YELLOW); KETONES URINE NEGATIVE (NEGATIVE); LEUKOCYTE ESTERASE URINE NEGATIVE (NEGATIVE); NITRITE URINE NEGATIVE (NEGATIVE); OCCULT BLOOD URINE NEGATIVE (NEGATIVE); PH URINE 6.5 (4.5-8.0); PROTEIN URINE NEGATIVE (NEGATIVE); SPECIFIC GRAVITY URINE 1.008 (1.005-1.030)
[2022-10-29] VITALS (8 sets, daily range): BP systolic 93–127; BP diastolic 62–90; PULSE 60–70; RESP 18–20; TEMP 97.2–98.1; O2SAT 97
[2022-10-29] MEDS ORDERED: ONDANSETRON HCL 4MG/2ML INJ IV PRN (05:15)
[2022-10-29] MEDS ORDERED: GUAIFENESIN/CODEINE 200-20MG/10ML UDC PO PRN (05:15)
[2022-10-29] MEDS ORDERED: DEXTROSE 50% WATER 50ML SYRINGE IV PRN (05:30)
[2022-10-29] MEDS: INSULIN LISPRO 100 UNITS/ML SUBCUT SCH ×3 (07:40→18:40)
[2022-10-29] MEDS: BLOOD SUGAR DIAGNOSTIC STRIP TEST SCH ×3 (07:52→17:10)
[2022-10-29] MEDS ORDERED: PNEUMOCOCCAL 23-VAL P-SAC VAC 0.5 ML IM ONE (11:00)
[2022-10-29 12:12] LABS: BASOPHILS % 0.8 % (0.0-2.0); EOSINOPHILS % 1.6 % (0.0-5.0); HEMATOCRIT. 46.4 % (42.0-52.0); HEMOGLOBIN. 15.7 g/dL (14.0-18.0); LYMPHOCYTES % 23.3 % (20.0-50.0); MEAN CORPUSCULAR HEMOGLOBIN 32.6 pg (28.0-32.0); MEAN CORPUSCULAR VOLUME 96.4 fL (80.0-94.0); MEAN PLATELET VOLUME 9.7 fl (7.4-10.4); NEUTROPHILS % 67.3 % (40.0-76.0); PLATELET 174 x1000/uL (130-400); RED BLOOD CELL COUNT 4.82 mill/uL (4.7-6.1); RED CELL DISTRIBUTION WIDTH 15.4 % (11.6-14.6)
== END 2022-10-29 20:30 | disposition home or self-care (01) | DRG 73 ==
LOC: ER 11:38 → 8WST 14:45 → EDBEDREQ 14:46 → EDBEDREQTM 14:46 → ENRESERV 20:34
PROVIDERS: ADMIT Internal Medicine; ATTEND Internal Medicine
DX: G90.8 Other disorders of autonomic nervous system (principal); I50.23 Acute on chronic systolic (congestive) heart failure; E44.1 Mild protein-calorie malnutrition; E87.1 Hypo-osmolality and hyponatremia; I42.9 Cardiomyopathy, unspecified; E72.4 Disorders of ornithine metabolism; K74.60 Unspecified cirrhosis of liver; E11.9 Type 2 diabetes mellitus without complications; I11.0 Hypertensive heart disease with heart failure; Z68.32 Body mass index [BMI] 32.0-32.9, adult
CPT/HCPCS: 36415; 71045; 74176; 76700; 80048; 80053; 80061; 81003; 82140; 82962; 83036; 84484; 85025; 93005; 99285; J1815